=== PATIENT | male | born 1970 | race Caucasian/White ===

== ENCOUNTER 2019-07-01 13:51 | Outpatient (CLI) | payer OTHER ==
--- NOTE | 2019-07-01 14:02 | RAD ---
EXAM: Chest 2 views: HISTORY: Dyspnea COMPARISON: None. FINDINGS: There is an enlarged cardiomediastinal silhouette. A pacemaker is seen with its tip in the right bereket tricle. There is no evidence of consolidation, mass, or pleural effusion. The bones are unremarkable. IMPRESSION: No evidence of acute cardiopulmonary disease
== END 2019-07-01 13:52 | disposition home or self-care (01) ==
LOC: RAD 13:51
PROVIDERS: ATTEND Internal Medicine Pulmonary Disease
DX: R06.00 Dyspnea, unspecified (principal)
CPT/HCPCS: 71046